=== PATIENT | female | born 2000 | race Caucasian/White ===

== ENCOUNTER → 2023-03-17 13:14 | Outpatient (BNVA) | payer BC, MEDICAID, SELFPAY | PROVIDERS: Family Provider Nurse Practitioner Family; PCP Registered Nurse; Visit Provider Registered Nurse | DX: R10.2 Pelvic and perineal pain (principal) | CPT/HCPCS: 81000 ==

== ENCOUNTER → 2023-04-06 10:21 | Outpatient (BNVA) | payer BC, MEDICAID, SELFPAY | PROVIDERS: Family Provider Nurse Practitioner Family; PCP Registered Nurse; Visit Provider Registered Nurse | DX: Z00.00 Encounter for general adult medical examination without abnormal findings (principal); R10.2 Pelvic and perineal pain | CPT/HCPCS: 87081; 87205 ==

== ENCOUNTER 2023-04-17 13:41 | Outpatient (CLI) | payer BC, MEDICAID, SELFPAY ==
--- NOTE | 2023-04-17 14:00 | US_ITS ---
WS: [id number] US pelvic complete* 25204 HISTORY: R10.2 - Pelvic and perineal pain COMPARISON: None available. Uterus: 8.6 cm x 5.8 cm x 3.7 cm. Normal size anteverted uterus. No fibroid or mass. Endometrium: 0.2 cm. Normal. Right ovary: Not identified. No adnexal mass. Left ovary: 3.0 cm x 1.9 cm x 1.8 cm. Normal size and vascularity, no cystic or solid masses. Physiologic free fluid in the cul-de-sac. IMPRESSION: 1. Normal endometrium. 2. RIGHT ovary not visualized.
== END 2023-04-17 13:42 | disposition home or self-care (01) ==
LOC: RAD 13:42
PROVIDERS: Family Provider Nurse Practitioner Family; PCP Registered Nurse; Visit Provider Registered Nurse
DX: R10.2 Pelvic and perineal pain (principal)
CPT/HCPCS: 76856

== ENCOUNTER → 2024-05-07 11:03 | Outpatient (BNVA) | payer BC, MEDICAID, SELFPAY | PROVIDERS: Family Provider Nurse Practitioner Family; PCP Registered Nurse; Visit Provider Emergency Medicine | DX: J06.9 Acute upper respiratory infection, unspecified (principal) | CPT/HCPCS: 87400 ==